=== PATIENT | female | born 1980 ===

== ENCOUNTER → 2018-09-06 21:01 | Outpatient (REF) | payer OTHER, SELFPAY ==
[2018-09-06 21:47] LABS: Add Manual Diff / Slide Review NO; Basophils Absolute Auto 0 /uL (0-100); Basophils Percent Auto 0.6 % (0-2); Eosinophils Absolute Auto 100 /uL (0-450); Eosinophils Percent Auto 2.4 % (2-4); Hematocrit 39.3 % (36-46); Hemoglobin 13.4 g/dL (12.0-16.0); Lymphocytes Absolute Auto 2200 /uL (1100-4500); Lymphocytes Percent Auto 50.9 % (25-40); Mean Corpuscular HGB Conc 34.1 % (30-36); Mean Corpuscular Hemoglobin 33.1 PG (26-34); Monocytes Absolute Auto 300 /uL (0-900); Monocytes Percent Auto 7.2 % (3-14); Neutrophils Absolute Auto 1700 /uL (1500-7000); Neutrophils Percent Auto 38.9 % (50-75); Platelet Count 171 X10^3/uL (150-400); Red Blood Cell Count 4.05 X10^6/uL (4.0-5.2); Red Cell Distribution Width 13.1 % (11.6-14.8); White Blood Cell Count 4.3 X10^3/uL (4.5-11.0)
[2018-09-06 23:04] LABS: Alanine Aminotransferase 23 IU/L (9-52); Albumin 4.6 g/dL (3.5-5.0); Albumin Globulin Ratio 1.5 (1.0-2.8); Alkaline Phosphatase 47 U/L (38-126); Aspartate Aminotransferase 20 IU/L (14-36); BUN Creatinine Ratio 21.7 (6-22); Bilirubin Total 1.4 mg/dL (0.2-1.3); Blood Urea Nitrogen 13 mg/dL (7-17); Calcium 9.3 mg/dL (8.4-10.2); Carbon Dioxide 27 mmol/L (22-32); Chloride 103 mmol/L (98-107); Estimated Glomerular Filt Rate > 60.0 mL/min (>60); Globulin 3.1 g/dL (1.7-4.1); Glucose 70 mg/dL (70-100); HEMOLYSIS < 15 (0-50); Potassium 3.8 mmol/L (3.4-5.1); Sodium 141 mmol/L (137-145); Total Protein 7.7 g/dL (6.3-8.2)
[2018-09-06 23:23] LABS: Follicle Stimulating Hormone 4.94 mIU/mL; Luteinizing Hormone 4.36 mIU/mL
[2018-09-06 23:26] LABS: Free T3, Triiodothyronine Free 3.85 pg/mL (2.77-5.27); Free T4, Direct Thyroxine 0.84 ng/dL (0.78-2.19)
[2018-09-06 23:40] LABS: Thyroid Stimulating Hormone 3.36 uIU/mL (0.47-4.68)
[2018-09-06 23:41] LABS: Ferritin 19.6 ng/mL (6.27-137)
[2018-09-08 14:45] LABS: Anti Thyroglobulin Antibody 4 IU/mL (< 2); Thyroid Peroxidase Antibodies 1 IU/mL (< 9)
[2018-09-09 16:44] LABS: Progesterone 0.6 ng/mL
[2018-09-09 16:47] LABS: Dehydroepiandrosterone Sulfate 114 mcg/dL (23-266); Estradiol 22 pg/mL
[2018-09-10 12:56] LABS: Estrogen 116.4 pg/mL
== END ==
LOC: LAB 21:01
PROVIDERS: Visit Provider Family Medicine
DX: R53.83 Other fatigue (principal)
CPT/HCPCS: 36415; 80053; 82627; 82670; 82672; 82728; 83001; 83002; 84144; 84402; 84403; 84439; 84443; 84481; 84482; 85025; 86376; 86800